=== PATIENT | female | born 1955 | race Caucasian/White ===

== ENCOUNTER 2016-07-05 19:43 | Emergency (ER) | payer OTHER ==
[~2016-07-05] VITALS: Ht 165.1 cm; Wt 72.0 kg
[2016-07-05 19:55] VITALS: BP 174/117; PULSE 93; RESP 22; TEMP 98.6; O2SAT 99
[2016-07-05] MEDS ORDERED: LORazepam 2 MG/ML VIAL IV PUSH ONE (20:00)
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
[2016-07-05 21:15] LABS: BASOPHIL # 0.1 TH/MM3 (0-0.2); BASOPHIL % 0.8 % (0.0-2.0); EOSINOPHIL # 0.4 TH/MM3 (0-0.4); EOSINOPHIL % 4.6 % (0.0-4.0); HEMATOCRIT 36.9 % (35.0-46.0); HEMO FLAGS DIFF FINAL; MEAN CELL VOLUME 81.5 FL (80.0-100.0); MEAN CORPUSCULAR HEMOGLOBIN 27.2 PG (27.0-34.0); MEAN CORPUSCULAR HGB CONC 33.3 % (32.0-36.0); MONO % 5.8 % (0.0-8.0); NEUT % 63.8 % (16.0-70.0); PLATELET COUNT 264 TH/MM3 (150-450); RED BLOOD COUNT 4.53 MIL/MM3 (4.00-5.30); RED CELL DISTRIBUTION WIDTH 15.2 % (11.6-17.2); WHITE BLOOD COUNT 7.9 TH/MM3 (4.0-11.0)
[2016-07-05 21:17] LABS: POTASSIUM 3.6 MEQ/L (3.5-5.1)
[2016-07-05 21:23] VITALS: BP 159/89; PULSE 80; RESP 16; O2SAT 99
[2016-07-05] MEDS ORDERED: RESP: ALBUTEROL 2.5 MG/3 ML NEB (SCH) NEB ONE (21:30)
[2016-07-05 21:33] LABS: BICARBONATE 23.9 MEQ/L (21.0-32.0)
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
[2016-07-05] MEDS ORDERED: IBUP-232 PO (22:10)
== END 2016-07-05 22:44 | disposition home or self-care (01) ==
LOC: NEPC 19:43
DX: S39.012A Strain of muscle, fascia and tendon of lower back, initial encounter (principal); V43.62XA Car passenger injured in collision with other type car in traffic accident, initial encounter; Y92.410 Unspecified street and highway as the place of occurrence of the external cause; Z88.0 Allergy status to penicillin
CPT/HCPCS: 71010; 72131; 74176; 80048; 85025; 96374; 99284; J2060